=== PATIENT | female | born 1970 | race Caucasian/White ===

== ENCOUNTER 2016-11-03 08:32 | Emergency (ER) | payer MEDICARE, MEDICAID ==
[2016-11-03 08:55] VITALS: BP 99/52
[2016-11-03] MEDS ORDERED: Tetan/Diph/Pertus SYR(Tdap)* 0.5 ML SYR(BOOSTRIX) use SYR IM ONE (09:47)
--- NOTE | 2016-11-03 10:20 | RAD ---
Indication: .Bite last night distal RIGHT second finger. Comparison: No relevant prior exams available on the [facility] [place] PACS for comparison. Technique: 3 views RIGHT second finger REPORT AND IMPRESSION: Soft tissue swelling greatest distally. No conspicuous foreign body or subcutaneous emphysema. Negative for fracture or malalignment.
--- NOTE | 2016-11-03 10:37 | UC ---
Bite Injury/Animal HPI - HPI Summary HPI Summary: 46 yo female s/p bite to distal right index finger yesterday by her pet dog unsure of her last tetanus - History of Current Complaint Chief Complaint: UCBiteInjury Stated Complaint: RIGHT POINTER FINGER Time Seen by Provider: 11/03/16 09:44 Hx Last Menstrual Period: age 33 Severity Currently: Mild Severity Initially: Moderate Pain Intensity: 3 Pain Scale Used: 0-10 Numeric Onset/Duration: Sudden Onset Type of Bite: Animal Has Animal Been Immunized?: Yes Character: Puncture Associated Signs And Symptoms: Positive: Swelling Animal Available for Observation: Yes Animal Control Notified: Yes - Allergies/Home Medications Allergies/Adverse Reactions: Allergies Allergy/AdvReac Type Severity Reaction Status Date / Time Ciprofloxacin [From Cipro] Allergy Intermediate Rash Verified 11/03/16 08:51 Azithromycin Allergy Anaphylatic Verified 11/03/16 08:51 Shock Bee Venom Allergy Anaphylatic Verified 11/03/16 08:51 Shock Meperidine [From Demerol HCl] Allergy Headache Verified 11/03/16 08:51 Penicillins Allergy Rash Verified 11/03/16 08:51 Luis Cheese Allergy Rash Uncoded 11/03/16 08:51 Home Medications: Home Medications Acetaminophen [Acetaminophen Extra Stren] 1,000 mg PO Q6H PRN 11/03/16 [History Confirmed 11/03/16] Albuterol 2.5MG/3ML (0.083%)* [Ventolin 2.5 MG/3 ML NEB.ROSIE*] 2.5 mg INH Q6H PRN 11/03/16 [History Confirmed 11/03/16] Amitriptyline TAB* [Elavil TAB*] 100 mg PO BEDTIME 11/03/16 [History Confirmed 11/03/16] Beclomethasone 80 MCG MDI(NF) [Qvar 80 MCG MDI(NF)] 1 puff INH BID 11/03/16 [ History Confirmed 11/03/16] Calcium Carbonate-Vitamin D [Calcium 600 + D 600-400 mg-Unit] 1 tab PO DAILY [History Confirmed 11/03/16] Citalopram TAB* [Celexa TAB*] 20 mg PO DAILY 11/03/16 [History Confirmed ] Dapsone 50 mg PO DAILY 11/03/16 [History Confirmed 11/03/16] Docusate CAP* [Colace Cap*] 100 mg PO BEDTIME 11/03/16 [History Confirmed ] Fluticasone NASAL SPRAY 50MCG* [Flonase NASAL SPRAY 50MCG*] 1 spray BOTH NARES BID 11/03/16 [History Confirmed 11/03/16] Furosemide TAB* [Lasix TAB*] 20 mg PO SEE INSTRUCTIONS 11/03/16 [History Confirmed 11/03/16] Hydrocodone/Acetamin 10/325(NF [[place] 10/325 (NF)] 1 tab PO Q6H PRN 11/03/16 [ History Confirmed 11/03/16] Methylphenidate ER TAB* [Concerta ER TAB*] 54 mg PO DAILY 11/03/16 [History Confirmed 11/03/16] Metoclopramide TAB* [Reglan TAB*] 5 mg PO Q8H 11/03/16 [History Confirmed ] Metolazone TAB* [Zaroxolyn TAB*] 2.5 - 5 mg PO QAM PRN 11/03/16 [History Confirmed 11/03/16] Montelukast Sodium TAB* [Singulair 10 MG TAB*] 10 mg PO DAILY 11/03/16 [History Confirmed 11/03/16] Pantoprazole TAB (NF) [Protonix TAB (NF)] 40 mg PO DAILY 11/03/16 [History Confirmed 11/03/16] Potassium Chlor TAB* [Potassium Chlor TAB 20 MEQ*] 20 meq PO DAILY 11/03/16 [ History Confirmed 11/03/16] Ranitidine TAB (NF) [Zantac TAB (NF)] 150 mg PO BID 11/03/16 [History Confirmed 11/03/16] SUMAtriptan TAB* [Imitrex TAB*] 100 mg PO SEE INSTRUCTIONS PRN 11/03/16 [ History Confirmed 11/03/16] Spironolactone TAB* [Aldactone TAB 25 MG*] 100 mg PO DAILY 11/03/16 [History Confirmed 11/03/16] Tizanidine HCl 4 mg PO BID PRN 11/03/16 [History Confirmed 11/03/16] Topiramate [Topamax 100 mg tab] 100 mg PO BID 11/03/16 [History Confirmed ] PMH/Surg Hx/FS Hx/Imm Hx Previously Healthy: Yes Cardiovascular History Of: Reports: Cardiac Disorders - tachycardia Respiratory History Of: Reports: Asthma GI/ History Of: Denies: Gastroesophageal Reflux, Ulcer, Gastrointestinal Bleed, Gall Bladder Disease, Kidney Stones, Diverticulitis, Renal Disease, Urosepsis Neurological History Of: Denies: TIA, CVA, Dementia, Seizures, Migraine Psychological History Of: Denies: Anxiety, Depression, Bipolar Disorder, Schizophrenia, Post Traumatic Stress Disorder Cancer History Of: Denies: Lung Cancer, Colorectal Cancer, Breast Cancer, Prostate Cancer, Cervical Cancer - Surgical History Surgical History: Yes Surgery Procedure, Year, and Place: hysterectomy, cholecystectomy, rt ovary removed, stent in kidney, pneumonia, NECK SURGERY 2010; [facility] HERNIATION NECK AND LOWER BACK - Family History Known Family History: Positive: Cardiac Disease, Hypertension - Social History Alcohol Use: Occasionally Substance Use Type: None Smoking Status (MU): Former Smoker Type: Cigarettes Amount Used/How Often: 1/2 PPD Length of Time of Smoking/Using Tobacco: 24 Years Have You Smoked in the Last Year: No When Did the Patient Quit Smoking/Using Tobacco: 2013 Household Exposure Type: Cigarettes - Immunization History Most Recent Influenza Vaccination: February 2016 Most Recent Tetanus Shot: "within ten years [of 2016]" Review of Systems Constitutional: Negative Skin: Negative Eyes: Negative ENT: Negative Respiratory: Negative Cardiovascular: Negative Gastrointestinal: Negative Genitourinary: Negative Motor: Negative Neurovascular: Negative Musculoskeletal: Negative Neurological: Negative Psychological: Negative All Other Systems Reviewed And Are Negative: Yes Physical Exam Triage Information Reviewed: Yes Appearance: Well-Appearing, No Pain Distress, Well-Nourished Vital Signs: Initial Vital Signs Temp 98 F 11/03/16 08:44 Pulse 80 11/03/16 08:44 Resp 16 11/03/16 08:44 BP 99/52 11/03/16 08:44 Pulse Ox 97 11/03/16 08:44 Vital Signs Reviewed: Yes Eyes: Positive: Conjunctiva Clear ENT: Positive: Hearing grossly normal. Negative: Nasal congestion, Nasal drainage, Trismus, Muffled/hoarse voice Neck: Positive: Supple, Nontender Respiratory: Positive: Chest non-tender, Lungs clear, Normal breath sounds, No respiratory distress Cardiovascular: Positive: RRR, No Murmur Bowel Sounds: Positive: Present Musculoskeletal: Positive: Strength Intact, ROM Intact Neurological: Positive: Alert Psychological Exam: Normal Skin Exam: Normal Bite Injury Course/Dx - Course Course Of Treatment: xr no fx - Differential Dx/Diagnosis Provider Diagnoses: dog bite right index finger Discharge - Discharge Plan Condition: Stable Disposition: HOME Prescriptions: DOXYcycline CAP(*) [DOXYcycline 100MG CAP(*)] 100 mg PO BID #20 cap Patient Education Materials: Animal Bite (ED) Referrals: Jennifer Burgess MD [Primary Care Provider] - 4 Days Additional Instructions: warm soapy soaks 4 x day until better elevate elevate elevate recheck here or ER if swelling worsens Images Hands: 1 - PW 2 - PW 3 - swollen
== END 2016-11-03 10:36 | disposition home or self-care (01) ==
LOC: UCCORT 08:32
DX: S61.230A Puncture wound without foreign body of right index finger without damage to nail, initial encounter (principal); W54.0XXA Bitten by dog, initial encounter; Y93.9 Activity, unspecified; Y92.9 Unspecified place or not applicable; Z23 Encounter for immunization; J45.909 Unspecified asthma, uncomplicated; R00.0 Tachycardia, unspecified; Z90.49 Acquired absence of other specified parts of digestive tract; Z90.710 Acquired absence of both cervix and uterus; Z88.5 Allergy status to narcotic agent; Z88.0 Allergy status to penicillin; Z88.1 Allergy status to other antibiotic agents; Z91.030 Bee allergy status; Z87.891 Personal history of nicotine dependence
CPT/HCPCS: 73140; 90471; 90715; 99213; G0463

== ENCOUNTER 2016-11-27 17:10 | Emergency (ER) | payer MEDICARE, MEDICAID ==
--- NOTE | 2016-11-27 17:28 | UC ---
Respiratory Complaint HPI - HPI Summary HPI Summary: patient has had increase respiratory issues and cough, has not had her inhalers in months. - History of Current Complaint Chief Complaint: UCRespiratory Stated Complaint: COUGH Time Seen by Provider: 11/27/16 17:18 Hx Obtained From: Patient Hx Last Menstrual Period: age 33 ?: No Onset/Duration: Sudden Onset, Lasting Days Timing: Constant Severity Initially: Moderate Severity Currently: Severe Character: Cough: Nonproductive Aggravating Factors: Exertion, Deep Breaths, Recumbent Position Alleviating Factors: Upright Position Associated Signs And Symptoms: Positive: Dyspnea, Wheezing, URI - Allergies/Home Medications Allergies/Adverse Reactions: Allergies Allergy/AdvReac Type Severity Reaction Status Date / Time Ciprofloxacin [From Cipro] Allergy Intermediate Rash Verified 11/27/16 17:18 Azithromycin Allergy Anaphylatic Verified 11/27/16 17:18 Shock Bee Venom Allergy Anaphylatic Verified 11/27/16 17:18 Shock Meperidine [From Demerol HCl] Allergy Headache Verified 11/27/16 17:18 Penicillins Allergy Rash Verified 11/27/16 17:18 Luis Cheese Allergy Rash Uncoded 11/27/16 17:18 PMH/Surg Hx/FS Hx/Imm Hx Previously Healthy: Yes - Surgical History Surgical History: Yes Surgery Procedure, Year, and Place: hysterectomy, cholecystectomy, rt ovary removed, stent in kidney, pneumonia, NECK SURGERY 2010; DISC HERNIATION NECK AND LOWER BACK - Family History Known Family History: Positive: Cardiac Disease, Hypertension - Social History Alcohol Use: Rare Substance Use Type: None Smoking Status (MU): Former Smoker Type: Cigarettes Amount Used/How Often: 1/2 PPD Length of Time of Smoking/Using Tobacco: 24 Years Have You Smoked in the Last Year: No When Did the Patient Quit Smoking/Using Tobacco: 2013 Household Exposure Type: Cigarettes - Immunization History Most Recent Influenza Vaccination: February 2016 Most Recent Tetanus Shot: "within ten years [of 2016]" Review of Systems Constitutional: Negative Skin: Negative Eyes: Negative ENT: Negative Respiratory: Shortness Of Breath, Cough Cardiovascular: Negative Gastrointestinal: Negative Genitourinary: Negative Motor: Negative Neurovascular: Negative Musculoskeletal: Negative Neurological: Negative Psychological: Negative All Other Systems Reviewed And Are Negative: Yes Physical Exam Triage Information Reviewed: Yes Appearance: Well-Nourished, Ill-Appearing, Pain Distress Vital Signs: Initial Vital Signs Temp 97.8 F 11/27/16 17:15 Pulse 84 11/27/16 17:15 Resp 16 11/27/16 17:15 BP 140/72 11/27/16 17:15 Pulse Ox 99 11/27/16 17:15 Vital Signs Reviewed: Yes Eye Exam: Normal ENT Exam: Normal ENT: Positive: Pharyngeal erythema, Nasal congestion Dental Exam: Normal Neck exam: Normal Neck: Positive: Supple, Nontender, No Lymphadenopathy Respiratory: Positive: Respiratory distress - mild, Decreased breath sounds, Stridor, Wheezing, Inspiration Cardiovascular Exam: Normal Cardiovascular: Positive: RRR, No Murmur, Pulses Normal Abdominal Exam: Normal Abdomen Description: Positive: Nontender, No Organomegaly, Soft Bowel Sounds: Positive: Present Musculoskeletal Exam: Normal Musculoskeletal: Positive: Strength Intact, ROM Intact, No Edema Neurological Exam: Normal Neurological: Positive: Alert, Muscle Tone Normal Psychological Exam: Normal Skin Exam: Normal UC Diagnostic Evaluation - Laboratory O2 Sat by Pulse Oximetry: 99 Respiratory Course/Dx - Course Course Of Treatment: hx obtained, exam performed, meds reviewed, Neb treatment given. refill of meds given, treated for bronchitis - Differential Dx/Diagnosis Differential Diagnosis/HQI/PQRI: Asthma, Bronchitis, Influenza, Laryngitis Provider Diagnoses: asthma exacrebation. bronchitis Discharge - Discharge Plan Condition: Stable Disposition: HOME Prescriptions: Albuterol HFA INHALER* [Ventolin HFA Inhaler*] 2 puff INH Q4H PRN #1 mdi PRN Reason: Shortness Of Breath Cefdinir [Cefdinir 300 MG CAP] 300 mg PO BID #14 cap guaiFENesin/CODIEN 100MG-10MG* [Robitussin AC 100Mg-10Mg*] 10 ml PO BEDTIME PRN #50 ml MDD 10 ml PRN Reason: Cough Patient Education Materials: Moderate and Severe Persistent Asthma (ED), Acute Bronchitis (ED) Referrals: Jennifer Burgess MD [Primary Care Provider] - Additional Instructions: 1. take the medication as prescribed. 2. Get plenty of rest. 3. Follow up with your primary care to get re evaluate your care plan for asthma. 4. Report to Er with any increase in respiratory distress.
[2016-11-27] MEDS ORDERED: Albuterol 2.5 MG/3 ML NEB.SOL* (0.083%) INH ONE (17:30)
[2016-11-27 17:36] VITALS: BP 140/72
== END 2016-11-27 18:19 | disposition home or self-care (01) ==
LOC: UCCORT 17:10
DX: J45.901 Unspecified asthma with (acute) exacerbation (principal); Z87.891 Personal history of nicotine dependence
CPT/HCPCS: 99212; G0463